=== PATIENT | male | born 1965 ===

== ENCOUNTER 2017-02-08 10:41 | Outpatient (CLI) | payer OTHER ==
[2017-02-08 11:15] LABS: BASOPHILS # (AUTO) 0.1 K/uL (0.0-8.0); BASOPHILS % (AUTO) 0.9 % (0.0-2.0); EOSINOPHILS # (AUTO) 0.3 K/uL (0.0-0.7); EOSINOPHILS % (AUTO) 3.7 % (0.0-7.0); HEMATOCRIT 41.9 % (36.7-47.1); HEMOGLOBIN 14.1 g/dL (12.5-16.3); LYMPHOCYTES # (AUTO) 2.6 K/uL (20.0-40.0); LYMPHOCYTES % (AUTO) 34.2 % (20.5-51.5); MEAN CORPUSCULAR HEMOGLOBIN 26.5 uug (23.8-33.4); MEAN CORPUSCULAR HGB CONC 34 g/dL (32.5-36.3); MEAN CORPUSCULAR VOLUME 78.5 fL (73.0-96.2); MONOCYTES # (AUTO) 0.6 K/uL (2.0-10.0); MONOCYTES % (AUTO) 8.5 % (0.0-11.0); NEUTROPHILS % (AUTO) 52.7 % (38.5-71.5); PLATELET COUNT (AUTO) 274 K/uL (152-348); RED BLOOD CELL COUNT(AUTO) 5.33 MIL/uL (4.06-5.63); WHITE BLOOD COUNT (AUTO) 7.6 K/uL (3.6-10.2)
[2017-02-08 11:22] LABS: *BILIRUBIN,URIN NEGATIVE (NEGATIVE); *BLOOD, URINE NEGATIVE (NEGATIVE); *CLARITY,URINE CLEAR (CLEAR); *COLOR,URINE YELLOW (YELLOW); *KETONES,URINE NEGATIVE (NEGATIVE); *PROTEIN,URINE NEGATIVE (NEGATIVE); *UROBILINOGEN,URINE 0.2 E.U./dl (NORMAL); LEUKOCYTE ESTERASE ,URINE NEGATIVE (NEGATIVE); NITRITE, URINE NEGATIVE (NEGATIVE); UGLUCOSE NEGATIVE (NEGATIVE)
[2017-02-08 11:28] LABS: BACTERIA,URINE NONE SEEN /HPF (NONE SEEN); RBC,URINE NONE SEEN /HPF (0-3); SQUAMOUS EPITHELIAL CELL,UR FEW /HPF (NONE SEEN); WBC,URINE 0-3 /HPF (0-3)
[2017-02-08 11:31] LABS: BILIRUBIN,TOTAL 0.4 mg/dL (0.2-1.0)
== END 2017-02-08 23:59 | disposition home or self-care (01) ==
LOC: LAB 10:41
PROVIDERS: ATTEND Orthopaedic Surgery
DX: Z01.818 Encounter for other preprocedural examination (principal); R20.0 Anesthesia of skin; M77.11 Lateral epicondylitis, right elbow; Z98.890 Other specified postprocedural states
CPT/HCPCS: 36415; 80053; 81001; 85025; 85730; A4663

== ENCOUNTER 2017-02-11 09:01 | Day surgery (SDC) | payer OTHER ==
[~2017-02-11 09:01] MED LIST: POLYMYXIN B SULFATE 500,000 UNITS, BACITRACIN 50,000 UNITS, NORMAL SALINE 20 ML MC ONE
[2017-02-11] MEDS ORDERED: ONDANSETRON 4 MG/2 ML VIAL IV ONE (09:02)
[2017-02-11] MEDS ORDERED: DEXAMETHASONE SOD PHOSPHATE 4 MG INJ IV ONE (09:02)
[2017-02-11] MEDS ORDERED: SCOPOLAMINE HYDROBROMIDE 1.5 MG PATCH TD ONE (09:02)
[2017-02-11] MEDS ORDERED: DESFLURANE ANESTHESIA GAS 240 ML BOTTLE IH ONE (09:02)
[2017-02-11] MEDS ORDERED: LIDOCAINE HCL 1% 20 ML VIAL MC ONE (09:02)
[2017-02-11] MEDS ORDERED: CEFAZOLIN 1 G VIAL MC ONE (09:02)
[2017-02-11] MEDS ORDERED: IV LACTATED RINGERS SOLUTION 1,000 ML BAG IV ONE (09:02)
[2017-02-11] MEDS ORDERED: PROPOFOL 200 MG/20 ML BOTTLE IV ONE (09:02)
[2017-02-11] MEDS ORDERED: KETOROLAC TROMETHAMINE 30 MG INJ IM ONE (09:02)
[2017-02-11] MEDS ORDERED: BUPIVACAINE PF 0.5% 30 ML VIAL ONE (10:54)
[2017-02-11] MEDS ORDERED: FENTANYL CITRATE 100 MCG/2 ML AMPUL ONE (11:34)
[2017-02-11] MEDS ORDERED: MIDAZOLAM HCL 2 MG/2 ML VIAL ONE (11:35)
[2017-02-11] MEDS ORDERED: TRAMADOL HCL 50 MG TABLET ONE (14:02)
== END 2017-02-11 14:38 | disposition home or self-care (01) ==
LOC: DS 09:01
PROVIDERS: ATTEND Orthopaedic Surgery
DX: M77.01 Medial epicondylitis, right elbow (principal); Z98.890 Other specified postprocedural states; E66.9 Obesity, unspecified; Z88.8 Allergy status to other drugs, medicaments and biological substances
CPT/HCPCS: J0690; J1100; J1885; J2250; J2405; J3010; J3490; J7120